=== PATIENT | male | born 1990 | race Caucasian/White ===

== ENCOUNTER 2017-02-05 14:32 | Emergency (ER) | payer OTHER ==
--- NOTE | 2017-02-05 14:39 | EDPHY ---
H & P Time Seen by Provider: 02/05/17 14:38 HPI/ROS: CHIEF COMPLAINT: Abdominal pain HISTORY OF PRESENT ILLNESS: Patient presents with about a week of right lower quadrant vague abdominal discomfort, followed by some pain last night and then worse this morning. He describes it in his right lower quadrant radiates to his right groin and to his right flank. A little bit of decreased urination but no dysuria or hematuria. He has appendix out 2 years ago. No fevers or chills. No testicular symptoms. No recent trauma or injury. Symptoms mild currently. REVIEW OF SYSTEMS: Eye: no change in vision ENT: no sore throat Cardiac: no chest pain or syncope Pulmonary: no cough or SOB Abdomen: HPI a little bit of diarrhea, no vomiting Musculoskeletal: no back pain Skin: no rash Neuro: no headache Constitutional: no fever : HPI A comprehensive 10 point review of systems is otherwise negative aside from elements mentioned in the history of present illness. PAST MEDICAL HISTORY: Appendectomy Social history: Tobacco smoker General Appearance: Alert and conversant, cooperative. Eyes: No scleral icterus. ENT, Mouth: Normal mucous membranes. Respiratory: Normal respiratory effort, breath sounds equal, lungs are clear to auscultation. Cardiovascular: Regular rate and rhythm. Gastrointestinal: Abdomen is soft and non tender. Male is normal. Neurological: Alert and oriented x3. Normally conversant. Face symmetric, normal movement and sensation in all extremities. Skin: Warm and dry, no rashes. Musculoskeletal: No peripheral edema and no joint swelling. Psychiatric: Not agitated. Emergency Department course/MDM: Plan for urine dip, noncontrast CT discussed and consented, possibility of renal colic given clinical presentation, ibuprofen 600 mg. 1550: Urine dip negative for blood or infection. 1601: Normal CT abdomen and pelvis per Finer, personally interpreted by myself as well. Results discussed with the patient, precautions discussed. Reasonable to discharge with outpatient precautions. Smoking Status: Current every day smoker Constitutional: Initial Vital Signs Temperature (C) 36.8 C 02/05/17 14:33 Heart Rate 83 02/05/17 14:33 Respiratory Rate 18 02/05/17 14:33 Blood Pressure 141/91 H 02/05/17 14:33 O2 Sat (%) 96 02/05/17 14:33 O2 Delivery Mode Room Air Allergies/Adverse Reactions: No Known Allergies Allergy (Verified 02/05/17 14:32) Home Medications: Medication Instructions Recorded NK [No Known Home Meds] 02/05/17 Medical Decision Making - Diagnostics Imaging Results: Imaging Impressions Abdomen/Pelvis CT 02/05/17 14:55 Impression: 1. No evidence of urinary tract calculus. 2. No significant abnormality identified within the abdomen and pelvis. 3. 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 Attention: This CT examination is specifically designed to evaluate patients who are clinically suspected of having acute obstructive uropathy. This examination does not use radiographic contrast, and as such, provides only a limited evaluation of the abdomen, pelvis and retroperitoneum. If there is further clinical suspicion for pathological conditions other than obstructive uropathy, a complete CT evaluation of the abdomen and pelvis utilizing intravenous, oral, and rectal contrast should be considered. Findings discussed with Abel Son M.D. at 16:00 hour, 02/05/2017. Differential Diagnosis: Differential considered including but not limited to renal colic, UTI, gastroenteritis, bowel obstruction. - Data Points Medications Given: Discontinued Medications Ibuprofen (Motrin) 600 mg PO EDNOW ONE Stop: 02/05/17 14:56 Last Admin: 02/05/17 14:58 Dose: 600 mg Departure - Departure Disposition: Home, Routine, Self-Care Clinical Impression: Abdominal pain Qualifiers: Abdominal location: right lower quadrant Qualified Code(s): R10.31 - Right lower quadrant pain Condition: Good Instructions: Acute Abdominal Pain (ED) Additional Instructions: Please follow-up with your primary care provider next week or our senior behavioral scientist if you're not improving. Please return if you get worsening or severe pain, fever, vomiting, new symptoms. Normal CT abdomen and pelvis and negative urine for blood or infection here. Referrals: Uvaldo Goins MD [[facility] Primary Care Provider] - As per Instructions
[2017-02-05] MEDS ORDERED: IBUPROFEN 600 MG TAB PO ONE (14:55)
[2017-02-05 16:04] VITALS: BP 160/97; PULSE 65; RESP 16; TEMP 99.3; O2SAT 97
== END 2017-02-05 16:22 | disposition home or self-care (01) ==
DX: R10.31 Right lower quadrant pain (principal); F17.200 Nicotine dependence, unspecified, uncomplicated; Z90.49 Acquired absence of other specified parts of digestive tract

== ENCOUNTER → 2017-12-26 | Outpatient (CLI) | payer OTHER | LOC: FIMAGING 07:10 | PROVIDERS: ATTEND Registered Nurse | DX: M54.2 Cervicalgia (principal) ==